=== PATIENT | female | born 1995 | race Caucasian/White ===

== ENCOUNTER 2016-06-16 16:42 | Inpatient (IN) | payer OTHER ==
[~2016-06-16] VITALS: Ht 165.1 cm; Wt 41.0 kg
[2016-06-16] MEDS ORDERED: KETOROLAC 30 MG/1 ML IVPush ONE ×2 (17:00→20:00)
[2016-06-16] MEDS ORDERED: SODIUM CHLORIDE 0.9% 1,000ML IVBOLUS ONE (17:00)
[2016-06-16] MEDS ORDERED: SODIUM CHLORIDE FLUSH 10ML SYR IVF ONE ×2 (17:00→18:00)
[2016-06-16] MEDS ORDERED: SODIUM BICARBONATE 4.2%, 5ML ONE (18:03)
[2016-06-16] MEDS ORDERED: LIDOCAINE 1%, 20ML ONE (18:03)
[2016-06-16] MEDS ORDERED: LEVE100S6 PO (18:10)
[2016-06-16] MEDS ORDERED: LAMO PO (18:11)
[2016-06-16] MEDS ORDERED: BIRTH CONTROL (18:12)
[2016-06-16] MEDS ORDERED: MIDAZOLAM 1 MG/ML, 5ML ONE (18:24)
[2016-06-16] MEDS ORDERED: NALOXONE 1 MG/ML, 2ML ONE (18:24)
[2016-06-16] MEDS ORDERED: FENTANYL PF 100 MCG/2ML ONE (18:24)
[2016-06-16] MEDS ORDERED: FLUMAZENIL 0.1 MG/1 ML, 5ML ONE (18:24)
[2016-06-16 18:25] LABS: BLOOD UREA NITROGEN 9 mg/dL (7-18); HEMOGLOBIN 14.6 g/dL (11.7-16.4)
[2016-06-16] MEDS ORDERED: KETOROLAC 30 MG/1 ML ONE (19:32)
[2016-06-16] MEDS ORDERED: PROPARACAINE OPHTH 0.5%, 15ML ONE (19:34)
[2016-06-16 22:58] VITALS: BP 117/79
[2016-06-16] MEDS ORDERED: LEVETIRACETAM 500 MG TABLET PO SCH (23:00)
[2016-06-16] MEDS: LAMOTRIGINE 100 MG TABLET HOMEMEDPO SCH (23:00)
[2016-06-16] MEDS ORDERED: LAMOTRIGINE 100 MG TABLET PO SCH (23:00)
[2016-06-16] MEDS: LEVETIRACETAM 500 MG TABLET HOMEMEDPO SCH (23:00)
[2016-06-17] MEDS ORDERED: OXYcodone/APAP 5/325MG TABLET ONE (00:42)
[2016-06-17 00:43] VITALS: BP 121/82
[2016-06-17] MEDS: OXYcodone/APAP 5/325MG TABLET PO PRN ×4 (00:44→22:36)
[2016-06-17] MEDS ORDERED: morphine SULFATE 10 MG/ML, 1ML IVPush PRN (01:00)
[2016-06-17 03:12] VITALS: BP 104/67
[2016-06-17 06:50] VITALS: BP 100/65
[2016-06-17 13:05] VITALS: BP 104/76
[2016-06-17] MEDS ORDERED: FENTANYL PF 100 MCG/2ML ONE ×2 (15:54→16:15)
[2016-06-17] MEDS ORDERED: NALOXONE 1 MG/ML, 2ML ONE (15:54)
[2016-06-17 20:00] VITALS: BP 112/81
[2016-06-17] MEDS: LEVETIRACETAM 500 MG TABLET HOMEMEDPO SCH (21:33)
[2016-06-17] MEDS: LAMOTRIGINE 100 MG TABLET HOMEMEDPO SCH (21:33)
[2016-06-18 00:42] VITALS: BP 97/62
[2016-06-18] MEDS: OXYcodone/APAP 5/325MG TABLET PO PRN ×3 (05:10→17:04)
[2016-06-18 05:24] VITALS: BP 109/73
[2016-06-18 07:06] VITALS: BP 102/69
[2016-06-18 14:16] VITALS: BP 112/70
[2016-06-18 18:39] VITALS: BP 106/71
[2016-06-18] MEDS: LEVETIRACETAM 500 MG TABLET HOMEMEDPO SCH (21:57)
[2016-06-18] MEDS: LAMOTRIGINE 100 MG TABLET HOMEMEDPO SCH (21:57)
[2016-06-19 01:58] VITALS: BP 108/71
[2016-06-19] MEDS: OXYcodone/APAP 5/325MG TABLET PO PRN ×2 (06:47→20:37)
[2016-06-19 06:49] VITALS: BP 108/73
[2016-06-19] MEDS: KETOROLAC 30 MG/1 ML IV SCH ×2 (12:25→18:30)
[2016-06-19 14:13] VITALS: BP 91/69
[2016-06-19 20:10] VITALS: BP 96/88
[2016-06-19] MEDS ORDERED: LEVETIRACETAM 500 MG TABLET PO SCH (21:00)
[2016-06-19] MEDS: LAMOTRIGINE 100 MG TABLET HOMEMEDPO SCH (23:00)
[2016-06-20] MEDS: KETOROLAC 30 MG/1 ML IV SCH ×4 (00:30→17:33)
[2016-06-20 02:00] VITALS: BP 98/86
[2016-06-20] MEDS: OXYcodone/APAP 5/325MG TABLET PO PRN ×2 (05:46→11:25)
[2016-06-20 07:52] VITALS: BP 101/68
[2016-06-20 14:00] VITALS: BP 93/63
[2016-06-20 18:52] VITALS: BP 97/67
[2016-06-20] MEDS ORDERED: HYDR-882 PO (20:40)
[2016-06-20] MEDS ORDERED: LAMOTRIGINE HOMEMEDPO SCH (21:00)
== END 2016-06-20 21:02 | disposition home or self-care (01) | DRG 201 ==
LOC: ED 19:36 → 4NOR 19:45 → OBSVTOIN 06-17 09:47
PROVIDERS: ADMIT Surgery; ATTEND Surgery
PROC: 0W9B30Z Drainage of Left Pleural Cavity with Drainage Device, Percutaneous Approach (ICD-10-PCS; principal; 2016-06-16)
PROC: 0W9B30Z Drainage of Left Pleural Cavity with Drainage Device, Percutaneous Approach (ICD-10-PCS; 2016-06-17)
DX: J93.9 Pneumothorax, unspecified (principal); G40.909 Epilepsy, unspecified, not intractable, without status epilepticus
CPT/HCPCS: 32551; 32557; 36415; 71010; 71020; 80048; 82040; 85025; 96374; 99156; G0378; J1885; J2250; J3010; J3490; C1729; C1769; J2270; J2310